=== PATIENT | female | born 1995 | race American Indian/Alaskan Native ===

== ENCOUNTER 2019-07-18 14:20 | Emergency (ER) | payer SELFPAY ==
[2019-07-18 14:26] VITALS: BP 146/86
== END 2019-07-18 17:28 | disposition left against medical advice (07) ==
LOC: ED 14:20
DX: M54.2 Cervicalgia (principal); M54.5 Low back pain; Z53.21 Procedure and treatment not carried out due to patient leaving prior to being seen by health care provider; V89.2XXA Person injured in unspecified motor-vehicle accident, traffic, initial encounter; Y93.89 Activity, other specified; Y92.89 Other specified places as the place of occurrence of the external cause; Y99.8 Other external cause status